=== PATIENT | female | born 1960 | race Caucasian/White ===

== ENCOUNTER 2017-02-22 17:22 | Emergency (ER) | payer MEDICARE ==
[2017-02-22] MEDS ORDERED: Ketorolac INJ* 60 MG/2 ML VIAL IM ONE (19:10)
--- NOTE | 2017-02-22 19:10 | UC ---
Upper Extremity HPI - HPI Summary HPI Summary: right arm pain for a week. Had a shot of cortisone into her shoulder that helped. Has seen a vacuum truck driver who has ordered an MRI neck, but it is not scheduled for another week. Pain continues, unrelieved by any meds. No injury. Right arm is weak with pain. No GRAY, no facial droop, speech clear, no focal weakness. - History of Current Complaint Chief Complaint: UCUpperExtremity Stated Complaint: RIGHT ARM PAIN Time Seen by Provider: 02/22/17 19:01 Hx Obtained From: Patient, Family/Odd Shoe Examiner - son Hx Last Menstrual Period: age 41 Onset/Duration: Gradual Onset, Lasting Days, Still Present Severity Initially: Moderate Severity Currently: Severe Pain Intensity: 9 Pain Scale Used: 0-10 Numeric Location Of Pain: Is Discrete @ - right arm, Radiates To - radiates from neck Character: Aching Aggravating Factor(s): Movement Alleviating Factor(s): Compression - at neck Associated Signs And Symptoms: Positive: Numbness/Tingling Related History: Dominant Hand Right - Allergies/Home Medications Allergies/Adverse Reactions: Allergies Allergy/AdvReac Type Severity Reaction Status Date / Time Codeine AdvReac Intermediate Abdominal Verified 02/22/17 18:24 Pain Home Medications: Home Medications Ibuprofen TAB* [Motrin TAB* 800 MG] 800 mg PO TID 02/22/17 [History Confirmed ] PMH/Surg Hx/FS Hx/Imm Hx Endocrine History Of: Denies: Diabetes Cardiovascular History Of: Denies: Cardiac Disorders, Hypertension, Pacemaker/ICD Respiratory History Of: Reports: Asthma - as young adult - Surgical History Surgical History: Yes Surgery Procedure, Year, and Place: Rt KNEE- ARTHROSCOPIC. TUBAL LIGATION - REVERSAL & THEN ANOTHER TUBAL LIGATION. GALLBLADDER - Family History Known Family History: Positive: Hypertension - Social History Alcohol Use: None Substance Use Type: None Smoking Status (MU): Heavy Every Day Tobacco Smoker Type: Cigarettes Amount Used/How Often: 1 ppd Household Exposure Type: Cigarettes - Immunization History Most Recent Influenza Vaccination: none Review of Systems Constitutional: Negative Skin: Negative Eyes: Negative ENT: Negative Respiratory: Negative Cardiovascular: Negative Gastrointestinal: Negative Genitourinary: Negative Motor: Negative Neurovascular: Negative Musculoskeletal: Arthralgia - right arm, denies neck pain Neurological: Paresthesia - right arm, Numbness - right arm Psychological: Negative All Other Systems Reviewed And Are Negative: Yes Physical Exam Triage Information Reviewed: Yes Appearance: Well-Appearing, Pain Distress, Obese Vital Signs: Initial Vital Signs Temp 98 F 02/22/17 18:10 Pulse 74 02/22/17 18:10 Resp 18 02/22/17 18:10 BP 156/94 02/22/17 18:10 Vital Signs Reviewed: Yes Eyes: Positive: Conjunctiva Clear ENT: Positive: Normal ENT inspection Neck: Positive: Supple, Nontender, No Lymphadenopathy Respiratory: Positive: Lungs clear, Normal breath sounds, No respiratory distress Cardiovascular: Positive: RRR, No Murmur, Pulses Normal, Brisk Capillary Refill Musculoskeletal: Positive: ROM Limited @ - right arm due to pain, Other: - distal pulses, sensation intact Neurological: Positive: Alert, Muscle Tone Normal Psychological Exam: Normal Skin Exam: Normal Upper Extremity Course/Dx - Course Course Of Treatment: xray with DJD C5-7, worse than previous - Differential Dx/Diagnosis Differential Diagnosis/HQI/PQRI: Strain, Sprain Provider Diagnoses: right arm radiculopathy. elevated BP due to distress and pain Discharge - Discharge Plan Condition: Stable Disposition: HOME Prescriptions: HYDROcodone/ACETAMIN 5-325 MG* [Vonore 5-325 TAB*] 1 tab PO Q4H PRN #18 tab MDD 6 PRN Reason: Pain Methylprednisolone [Medrol Dosepak 4 MG*] 4 mg PO .SEE BIRGIT INSTRUCTION #1 packet Patient Education Materials: Cervical Radiculopathy (ED) Referrals: Sanchez Novak MD [Medical Doctor] - (orthopedist, if no improvement ) Fidelia Raphael MD [Primary Care Provider] -
[2017-02-22] MEDS ORDERED: HYDROcodone/ACETAMIN 5-325 MG* 1 TAB PO ONE (19:23)
[2017-02-22] MEDS ORDERED: predniSONE TAB* 20 MG PO ONE (19:23)
--- NOTE | 2017-02-22 19:42 | RAD ---
INDICATION: Neck pain. COMPARISON: Comparison is made with a prior x-ray study of the central spine from December 30, 2013. TECHNIQUE: 5 views of the cervical spine were obtained including lateral, oblique, AP, open-mouth odontoid views. FINDINGS: There is mild retrolisthesis of C5 relative to C6 of approximately 2 mm which is unchanged from the prior study. No prevertebral soft tissue swelling or fracture is seen. There is moderate to severe disc space narrowing and moderate uncinate process spurring present at the C5-C6 and C6-C7 levels and moderate bilateral neural foraminal narrowing at those levels. There are also hypertrophic changes within the facet joints in the mid and lower lumbar spine. IMPRESSION: MODERATE TO SEVERE DEGENERATIVE DISC DISEASE AT THE C5-C6 AND C6-C7 LEVELS WITH SLIGHT PROGRESSION FROM THE PRIOR STUDY.
[2017-02-22 20:02] VITALS: BP 150/84
== END 2017-02-22 20:02 | disposition home or self-care (01) ==
LOC: UCCORT 17:22
DX: M54.12 Radiculopathy, cervical region (principal); R03.0 Elevated blood-pressure reading, without diagnosis of hypertension; Z88.5 Allergy status to narcotic agent; Z90.49 Acquired absence of other specified parts of digestive tract; F17.210 Nicotine dependence, cigarettes, uncomplicated
CPT/HCPCS: 72050; 96372; 99213; G0463; J1885; J7512

== ENCOUNTER 2017-08-09 14:37 | Emergency (ER) | payer MEDICARE ==
[2017-08-09 14:59] VITALS: BP 138/80
--- NOTE | 2017-08-09 15:36 | UC ---
Skin Complaint HPI - HPI Summary HPI Summary: TWO WEEKS OF RASH UNDER BILATERAL BREAST. NO PAIN. NO FEVER. HAS BEEN USING OTC HYDROCORTSONE WITH NO EFFECT. SEEMS TO BE SLOWLY SPREADING. - History of Current Complaint Chief Complaint: UCRash Time Seen by Provider: 08/09/17 14:52 Stated Complaint: RASH Hx Obtained From: Patient Hx Last Menstrual Period: age 41 Onset/Duration: Gradual Onset, Lasting Weeks, Still Present Skin Exposure Onset/Duration: Weeks Ago Onset Severity: Mild Current Severity: Moderate Location: Discrete - BILATERAL BREASTS Character: Pruritus, Redness Aggravating Factor(s): Humidity Alleviating Factor(s): Nothing Associated Signs & Symptoms: Positive: Rash. Negative: Nausea, Vomiting, Fever , Chills, Drainage, Bruising, Tenderness, Red Streaks Related History: Possible Reaction to: Environmental Exposure - Allergy/Home Medications Allergies/Adverse Reactions: Allergies Allergy/AdvReac Type Severity Reaction Status Date / Time Codeine AdvReac Intermediate Abdominal Verified 08/09/17 14:51 Pain Review of Systems Constitutional: Negative Skin: Rash Eyes: Negative ENT: Negative Respiratory: Negative Cardiovascular: Negative Gastrointestinal: Negative Genitourinary: Negative Motor: Negative Neurovascular: Negative Musculoskeletal: Negative Neurological: Negative Psychological: Negative Is Patient Immunocompromised?: No All Other Systems Reviewed And Are Negative: Yes PMH/Surg Hx/FS Hx/Imm Hx Previously Healthy: Yes - Surgical History Surgical History: Yes Surgery Procedure, Year, and Place: Rt KNEE- ARTHROSCOPIC. TUBAL LIGATION - REVERSAL & THEN ANOTHER TUBAL LIGATION. GALLBLADDER - Family History Known Family History: Positive: Hypertension - Social History Occupation: Employed Full-time Lives: With Family Alcohol Use: None Substance Use Type: None Smoking Status (MU): Heavy Every Day Tobacco Smoker Type: Cigarettes Amount Used/How Often: 1 ppd Household Exposure Type: Cigarettes - Immunization History Most Recent Influenza Vaccination: none Physical Exam Triage Information Reviewed: Yes Appearance: Well-Appearing, No Pain Distress, Well-Nourished, Obese Vital Signs: Initial Vital Signs Temp 97.1 F 08/09/17 14:52 Pulse 84 08/09/17 14:52 Resp 20 08/09/17 14:52 BP 138/80 08/09/17 14:52 Pulse Ox 98 08/09/17 14:52 Vital Signs Reviewed: Yes Eye Exam: Normal ENT Exam: Normal Dental Exam: Normal Neck exam: Normal Neck: Positive: Supple, Nontender Respiratory Exam: Normal Respiratory: Positive: Chest non-tender, Lungs clear, Normal breath sounds Cardiovascular Exam: Normal Cardiovascular: Positive: RRR, No Murmur, Pulses Normal Abdominal Exam: Normal Abdomen Description: Positive: Nontender Musculoskeletal Exam: Normal Musculoskeletal: Positive: Strength Intact, ROM Intact Neurological Exam: Normal Psychological Exam: Normal Skin: Positive: rashes - INTERTRIGINAL BILATERAL BREASTS Course/Dx - Differential Diagnoses - Skin Complaint Differential Diagnoses: Abscess, Cellulitis, Contact Dermatitis, Eczema, Impetigo, MRSA, Poison Rachel, Systemic Illness, Tick Born Illness, Tinea - Diagnoses Provider Diagnoses: BILATERAL INTERTRIGINAL BREASTS TINEA CORPORUS Discharge - Discharge Plan Condition: Stable Disposition: HOME Prescriptions: Ketoconazole 2 % CREAM (NF) [Nizoral 2% CREAM (NF)] 1 applic TOPICAL TID #60 gm Patient Education Materials: Tinea Corporis (ED) Referrals: Fidelia Raphael MD [Primary Care Provider] -
== END 2017-08-09 15:30 | disposition home or self-care (01) ==
LOC: UCCORT 14:37
DX: B35.4 Tinea corporis (principal); Z88.5 Allergy status to narcotic agent; E66.9 Obesity, unspecified; Z90.49 Acquired absence of other specified parts of digestive tract; F17.210 Nicotine dependence, cigarettes, uncomplicated
CPT/HCPCS: 99212; G0463

== ENCOUNTER 2017-08-17 07:27 | Emergency (ER) | payer MEDICARE ==
[2017-08-17 07:58] VITALS: BP 145/86
[2017-08-17] MEDS ORDERED: cefTRIAXone VIAL(*) 1,000 MG VIAL IM ONE (08:39)
--- NOTE | 2017-08-17 08:39 | UC ---
Breast Complaint - HPI Summary HPI Summary: Per oracle database manager "LEFT BREAST PAIN, REDNESS AND SWELLING , ONSET ABOUT TWO WEEKS AGO. WORSE FOR THE LAST TWO DAYS. WAS SEEN HER LAST WEEK FOR POSSIBLE YEAST INFECTION OF SKIN UNDER HER BREASTS. RASH RESOLOVED. ALSO HAVING SINUS CONGESITION AND PAIN. " 08/09/17 note reviewd. dx'd with tinea and treated with ketoconazole cream. She never filled the cream bc it was $40. upon further questioning, she is not sure that the rash resolved, but the pain under her breasts resolved. -she reports mammogram was neg at [facility] 1 mo ago. denies personal h/ o breast ca. 2 maternal aunts had breast ca. -nop fevers or chills. no cough -does fine with amox and cephalosporins she reports. -left breast pain started with a small little bump under the skin at [place]. - Allergy/Home Medications Allergies/Adverse Reactions: Allergies Allergy/AdvReac Type Severity Reaction Status Date / Time Codeine AdvReac Intermediate Abdominal Verified 08/17/17 07:44 Pain PMH/Surg Hx/FS Hx/Imm Hx Previously Healthy: Yes Psychological History: Anxiety, Depression - Surgical History Surgical History: Yes Surgery Procedure, Year, and Place: Rt KNEE- ARTHROSCOPIC. TUBAL LIGATION - REVERSAL & THEN ANOTHER TUBAL LIGATION. GALLBLADDER - Family History Known Family History: Positive: Hypertension, Other - 2 maternal aunts with breast ca. - Social History Alcohol Use: None Substance Use Type: None Smoking Status (MU): Heavy Every Day Tobacco Smoker Type: Cigarettes Amount Used/How Often: 1 ppd Household Exposure Type: Cigarettes - Immunization History Most Recent Influenza Vaccination: none Review of Systems Constitutional: Chills Skin: Rash Eyes: Negative ENT: Sinus Congestion, Sinus Pain/Tenderness Respiratory: Negative Cardiovascular: Negative Gastrointestinal: Negative Genitourinary: Negative Motor: Negative Neurovascular: Negative Musculoskeletal: Negative Neurological: Negative Psychological: Negative Is Patient Immunocompromised?: No All Other Systems Reviewed And Are Negative: Yes Physical Exam Triage Information Reviewed: Yes Appearance: Well-Appearing, No Pain Distress, Well-Nourished - very pleasant Vital Signs: Initial Vital Signs Temp 96.9 F 08/17/17 07:45 Pulse 84 08/17/17 07:45 Resp 16 08/17/17 07:45 BP 145/86 08/17/17 07:45 Pulse Ox 97 08/17/17 07:45 Vital Signs Reviewed: Yes Eye Exam: Normal ENT: Positive: Hearing grossly normal, Pharyngeal erythema, TMs normal, Other: - + b/l maxillary and frontal tendreness. Negative: Tonsillar swelling, Tonsillar exudate, Muffled/hoarse voice Dental Exam: Normal Neck exam: Normal Neck: Positive: Supple, Nontender, No Lymphadenopathy Respiratory Exam: Normal Respiratory: Positive: Lungs clear, Normal breath sounds, No respiratory distress, No accessory muscle use. Negative: Crackles, Rhonchi, Stridor, Wheezing Cardiovascular Exam: Normal Cardiovascular: Positive: RRR, No Murmur, Pulses Normal Abdomen Description: Positive: Nontender, Soft Musculoskeletal Exam: Normal Neurological Exam: Normal Psychological Exam: Normal Skin: Positive: rashes - non blanching mild - moderate diffuse erythema, cool to touch. no d/c or streaks. left breast with hot moderate rash surrounding areola. size of baseball-softball. no streaks, no d/c. very tender, firm. unable to palpate for nodules d/t tenderness. no LAD. skin is distorted. Breast Pain Course/Dx - Course Course Of Treatment: Left breast cellulitis. reassuring with reported neg mammogram last month but pt is directed to make sure to f/u with PCP on this as that mammograms are not 100% accurate and some breast cancers can present with rash. she is very agreeable and understands me well. rocephin 1 gm IM given here. amox for home to use, start today. probiotic. -rx for clotrimazole vream for under breasts. keep area dry and cool. - Differential Diagnoses Differential Diagnosis/HQI/PQRI: Breast Abscess, Breast Mass, Mastitis, Other: - tinea corporis - Diagnoses Provider Diagnoses: Cellulitis of left breast, Tinea corporis Discharge - Discharge Plan Condition: Stable Disposition: HOME Patient Education Materials: Cellulitis (ED), Tinea Corporis (ED) Referrals: Fidelia Raphael MD [Primary Care Provider] - 2 Days Additional Instructions: Make sure to take a probiotic daily while on antibiotics to help prevent a potential complication of antibiotic use called c diff. Some well known brands that can be found OTC are [employer]IS Proteolab, Xpliant and AwesomePiece. Make sure to complete the entire prescription unless advised otherwise by your health care provider. Make sure to follow up with your PCP in 2 days. Follow up should be considered regardless of normal recent mammogram as some breast cancers can present as a rash. You should go to ER with worsening symptoms, fevers. I have marked the cellulitis with a marker so it can be tracked by your follow up physician.
[2017-08-17] MEDS ORDERED: Lidocaine 1% MPF* 2 ML VIAL INJ ONE (08:45)
== END 2017-08-17 09:23 | disposition home or self-care (01) ==
LOC: UCCORT 07:27
DX: N61.0 Mastitis without abscess (principal); B35.4 Tinea corporis; F17.210 Nicotine dependence, cigarettes, uncomplicated; Z88.5 Allergy status to narcotic agent
CPT/HCPCS: 96372; 99212; G0463; J0696

== ENCOUNTER 2017-09-20 16:02 | Emergency (ER) | payer MEDICARE ==
--- NOTE | 2017-09-20 16:42 | UC ---
Abdominal Pain Female HPI - HPI Summary HPI Summary: 57 YEAR OLD FEMALE PRESENTS WITH COMPLAINS OF RIGHT SIDED LOWER BACK PAIN AND DRY COUGH. - History of Current Complaint Stated Complaint: RIGHT ABDOMEN COMPLAINT Time Seen by Provider: 09/20/17 16:41 Hx Obtained From: Patient Hx Last Menstrual Period: age 41 Onset/Duration: Sudden Onset Severity Initially: Moderate Severity Currently: Moderate Pain Scale Used: 0-10 Numeric - 5 Allergies/Adverse Reactions: Allergies Allergy/AdvReac Type Severity Reaction Status Date / Time Codeine AdvReac Intermediate Abdominal Verified 09/20/17 16:51 Pain PMH/Surg Hx/FS Hx/Imm Hx Previously Healthy: Yes - Surgical History Surgical History: Yes Surgery Procedure, Year, and Place: Rt KNEE- ARTHROSCOPIC. TUBAL LIGATION - REVERSAL & THEN ANOTHER TUBAL LIGATION. GALLBLADDER - Family History Known Family History: Positive: Hypertension, Other - 2 maternal aunts with breast ca. - Social History Alcohol Use: None Substance Use Type: None Smoking Status (MU): Heavy Every Day Tobacco Smoker Type: Cigarettes Amount Used/How Often: 1 ppd Household Exposure Type: Cigarettes - Immunization History Most Recent Influenza Vaccination: none Review of Systems Constitutional: Negative Skin: Negative Eyes: Negative ENT: Negative Respiratory: Cough Cardiovascular: Negative Gastrointestinal: Negative Genitourinary: Negative Motor: Negative Neurovascular: Negative Musculoskeletal: Other: - RIGHT LOWER BACK PAIN Neurological: Negative Psychological: Negative All Other Systems Reviewed And Are Negative: Yes Physical Exam Triage Information Reviewed: Yes Vital Signs Reviewed: Yes Eye Exam: Normal ENT Exam: Normal Dental Exam: Normal Neck exam: Normal Neck: Positive: 1 Respiratory Exam: Normal Respiratory: Positive: Wheezing Cardiovascular Exam: Normal Abdominal Exam: Normal Musculoskeletal: Positive: Other: - RIGHT LOWER BACK PAIN Neurological Exam: Normal Psychological Exam: Normal Skin Exam: Normal Abd Pain Female Course/Dx - Differential Dx/Diagnosis Provider Diagnoses: RIGHT LOWER BACK PAIN. DRY COUGH Discharge - Discharge Plan Condition: Stable Disposition: HOME Prescriptions: Benzonatate CAP* [Tessalon 100 MG CAP*] 100 mg PO TID PRN #30 cap PRN Reason: Cough Methocarbamol TAB* [Robaxin 500 MG TAB*] 500 mg PO TID PRN #30 tab PRN Reason: Spasms - Back Methylprednisolone [Medrol Dosepak 4 MG*] 4 mg PO .SEE BIRGIT INSTRUCTION #21 tab Promethazine-Dm [Promethazine/Dextromethor 6.25-15 mg/5Ml] 1 teasp PO BEDTIME PRN #120 ml MDD 5 ML PRN Reason: Cough Patient Education Materials: Muscle Spasm (ED), Acute Cough (ED) Referrals: Fidelia Raphael MD [Primary Care Provider] -
[2017-09-20 16:51] VITALS: BP 135/71
--- NOTE | 2017-09-20 18:14 | RAD ---
INDICATION: Cough x3 weeks COMPARISON: None TECHNIQUE: PA and lateral views of the chest were obtained. FINDINGS: The heart and mediastinum are normal in size and contour. The lungs are grossly clear. There is no evidence of large pleural effusion. Visualized bones are normal for the patient's age. There is no radiographic evidence of free air beneath the diaphragm IMPRESSION: No radiographic evidence of acute cardiopulmonary disease.
== END 2017-09-20 18:31 | disposition home or self-care (01) ==
LOC: UCCORT 16:02
DX: M54.5 Low back pain (principal); R05 Cough; Z90.49 Acquired absence of other specified parts of digestive tract; Z88.5 Allergy status to narcotic agent; F17.210 Nicotine dependence, cigarettes, uncomplicated
CPT/HCPCS: 71020; 81003; 99212; G0463

== ENCOUNTER 2018-05-17 15:18 | Emergency (ER) | payer MEDICARE ==
[2018-05-17 15:58] VITALS: BP 125/84
--- NOTE | 2018-05-17 17:13 | UC ---
Skin Complaint HPI - HPI Summary HPI Summary: 58 yo woman with PMHx of asthma, anxiety and tobacco abuse and cc of rash for 3 days. Pruritic. Similar rash 3 months ago. NO dyspnea, no cough , no trouble swallowing. - History of Current Complaint Chief Complaint: UCSkin Time Seen by Provider: 05/17/18 16:47 Stated Complaint: RASH/ SHORTNESS OF BREATH Hx Obtained From: Patient Hx Last Menstrual Period: age 41 ?: No - post mick Onset/Duration: Sudden Onset Skin Exposure Onset/Duration: Days Ago - 3 Timing: Constant Current Severity: Moderate Pain Intensity: 0 Location: Diffuse Character: Pruritus, Hives, Redness, Raised Aggravating Factor(s): Nothing Alleviating Factor(s): Antihistamines Associated Signs & Symptoms: Positive: Negative Related History: Other: - None known - Allergy/Home Medications Allergies/Adverse Reactions: Allergies Allergy/AdvReac Type Severity Reaction Status Date / Time codeine Allergy GI Upset Verified 05/17/18 15:52 Home Medications: Home Medications Sertraline HCl [Zoloft] 50 mg PO DAILY 05/17/18 [History Confirmed 05/17/18] diphenhydrAMINE HCl [Benadryl Allergy] 25 mg PO DAILY 05/17/18 [History Confirmed 05/17/18] Review of Systems Constitutional: Negative Skin: Rash - Pruritic rash all over body and head. Eyes: Negative ENT: Negative Respiratory: Negative Cardiovascular: Negative Gastrointestinal: Negative Genitourinary: Negative Motor: Negative Neurovascular: Negative Musculoskeletal: Negative Neurological: Negative Psychological: Negative Is Patient Immunocompromised?: No All Other Systems Reviewed And Are Negative: Yes PMH/Surg Hx/FS Hx/Imm Hx Previously Healthy: No - Has asthma and anxiety Respiratory History: Asthma Psychological History: Anxiety - Surgical History Surgical History: Yes Surgery Procedure, Year, and Place: Rt KNEE- ARTHROSCOPIC. TUBAL LIGATION - REVERSAL & THEN ANOTHER TUBAL LIGATION. GALLBLADDER - Family History Known Family History: Positive: Hypertension, Other - 2 maternal aunts with breast ca. - Social History Lives: With Family Alcohol Use: None Substance Use Type: None Smoking Status (MU): Heavy Every Day Tobacco Smoker Type: Cigarettes Amount Used/How Often: 1 ppd Household Exposure Type: Cigarettes - Immunization History Most Recent Influenza Vaccination: none Physical Exam - Summary Physical Exam Summary: 58 yo woman , who is alert, cooperative, and who has a generalized , raised rash. Triage Information Reviewed: Yes Appearance: Well-Appearing Vital Signs: Initial Vital Signs Temp 98.1 F 05/17/18 15:49 Pulse 94 05/17/18 15:49 Resp 18 05/17/18 15:49 BP 125/84 05/17/18 15:49 Pulse Ox 96 05/17/18 15:49 Vital Signs Reviewed: Yes Eye Exam: Normal ENT Exam: Normal Dental Exam: Normal Neck exam: Normal Respiratory Exam: Normal Respiratory: Positive: Lungs clear, No respiratory distress Cardiovascular Exam: Normal Cardiovascular: Positive: RRR, No Murmur, Pulses Normal Abdominal Exam: Normal Abdomen Description: Positive: Nontender, No Organomegaly, Soft Bowel Sounds: Positive: Present Pelvic Exam: Positive: Other - Not examined Musculoskeletal Exam: Normal Neurological Exam: Normal Skin: Positive: rashes - raised, red, urticarial rash , generalized. Course/Dx - Diagnoses Provider Diagnoses: urticaria Discharge - Sign-Out/Discharge Documenting (check all that apply): Patient Departure - Discharge Plan Condition: Stable Disposition: HOME Prescriptions: predniSONE [Deltasone 20 MG TAB] 20 mg PO ONCE 5 Days #5 tablet Patient Education Materials: Urticaria (ED) Print Language: ARMENIAN Referrals: Fidelia Raphael MD [Primary Care Provider] - - Billing Disposition and Condition Condition: STABLE Disposition: Home
== END 2018-05-17 17:18 | disposition home or self-care (01) ==
LOC: UCCORT 15:18
DX: L50.9 Urticaria, unspecified (principal); Z88.5 Allergy status to narcotic agent; F17.210 Nicotine dependence, cigarettes, uncomplicated; J45.909 Unspecified asthma, uncomplicated; F41.9 Anxiety disorder, unspecified
CPT/HCPCS: 99212; G0463